=== PATIENT | female | born 1975 | race Two or more races ===

== ENCOUNTER → 2020-06-04 09:35 | Outpatient (CLI) | payer OTHER | END | disposition home or self-care (01) | LOC: PPH VACUNA 09:35 | DX: Z23 Encounter for immunization (principal) ==

== ENCOUNTER → 2020-06-25 13:41 | Outpatient (CLI) | payer OTHER | END | disposition home or self-care (01) | LOC: PPH VACUNA 13:41 | DX: Z23 Encounter for immunization (principal) ==